=== PATIENT | female | born 1960 | race Caucasian/White ===

== ENCOUNTER 2021-09-19 11:14 | Inpatient (IN) | payer MEDICARE, MEDICAID ==
[~2021-09-19] VITALS: Ht 165.1 cm; Wt 87.5 kg
[2021-09-19] MEDS: ASPIRIN 81MG TABLET PO ONE ×2 (12:00→12:17)
[2021-09-19] MEDS ORDERED: CLONIDINE 0.2MG TABLET PO ONE (12:00)
[2021-09-19] MEDS ORDERED: NITROGLYCERIN 0.4MG TABLET SL SL PRN (12:00)
[2021-09-19 12:11] LABS: BASOPHILS % 0.8 % (0.0-2.0); EOSINOPHILS % 5.1 % (0.0-5.0); HEMATOCRIT. 39.3 % (36.0-48.0); HEMOGLOBIN. 12.5 g/dL (12.0-16.0); LYMPHOCYTES % 11.4 % (20.0-50.0); MEAN CORPUSCULAR HEMOGLOBIN 30.7 pg (28.0-32.0); MEAN CORPUSCULAR VOLUME 96.7 fL (81.0-99.0); MEAN PLATELET VOLUME 8.4 fl (7.4-10.4); MONOCYTES % 5.3 % (2.0-8.0); NEUTROPHILS % 77.4 % (40.0-76.0); PLATELET 194 x1000/uL (130-400); RED BLOOD CELL COUNT 4.07 mill/uL (4.2-5.4); RED CELL DISTRIBUTION WIDTH 16.6 % (11.6-14.6)
[2021-09-19 12:21] LABS: CHLORIDE 108 mEq/L (98-107)
[2021-09-19 12:35] LABS: D-DIMER 1.15 mg/L FEU (<0.50); PARTIAL THROMBOPLASTIN TIME 23.5 sec (23.4-31.0); PROTHROMBIN TIME 10.6 sec (9.6-11.0)
[2021-09-19] MEDS ORDERED: MAGNESIUM/ALUMINUM HYDROXIDE/SIMETHICONE 30ML UDC PO PRN (14:15)
[2021-09-19] MEDS ORDERED: HYDROCODONE/ACETAMINOPHEN 5/325MG TABLET PO PRN (14:15)
[2021-09-19] MEDS ORDERED: DOCUSATE SODIUM 100MG CAPSULE PO PRN (14:15)
[2021-09-19] MEDS: AMLODIPINE 10MG TABLET PO SCH ×2 (14:15→14:36)
[2021-09-19] MEDS ORDERED: ACETAMINOPHEN 325MG TABLET PO PRN (14:15)
[2021-09-19] MEDS ORDERED: GUAIFENESIN 200MG/10ML SUGAR FREE UDC PO PRN (14:15)
[2021-09-19] MEDS ORDERED: ONDANSETRON HCL 4MG/2ML INJ IV PRN (14:15)
[2021-09-19] MEDS ORDERED: DIPHENHYDRAMINE 50MG/ML VIAL IV PRN (14:15)
[2021-09-19] MEDS ORDERED: NALOXONE HCL 0.4MG/ML VIAL IV PRN (14:30)
[2021-09-19 16:38] LABS: HEPATITIS B SURFACE ANTIGEN NEGATIVE
[2021-09-19] MEDS ORDERED: IOHEXOL-350 100 ML BOTTLE ONE (16:48)
[2021-09-19] MEDS: METOPROLOL TARTRATE 25MG TABLET PO SCH (17:12)
[2021-09-19 18:54] VITALS: BP 226/89
[2021-09-19] MEDS ORDERED: FAMO20TA8 PO (19:07)
[2021-09-19] MEDS ORDERED: CARB100C9 PO (19:07)
[2021-09-19] MEDS ORDERED: LINA5TAB PO (19:07)
[2021-09-19] MEDS ORDERED: LEVO100T9 PO (19:07)
[2021-09-19] MEDS ORDERED: CARV25TA47 PO (19:07)
[2021-09-19] MEDS ORDERED: HYDR100T26 PO (19:07)
[2021-09-19] MEDS ORDERED: SPIR25TA6 PO (19:07)
[2021-09-19] MEDS ORDERED: VITA250012 PO (19:07)
[2021-09-19] MEDS ORDERED: CHLO25TA2 PO (19:07)
[2021-09-19] MEDS ORDERED: DEXTROSE 50% WATER 50ML SYRINGE IV PRN (19:15)
[2021-09-19 20:00] VITALS: BP 163/81
[2021-09-19] MEDS: BLOOD SUGAR DIAGNOSTIC STRIP TEST SCH (21:00)
[2021-09-19] MEDS: INSULIN LISPRO 100 UNITS/ML SUBCUT SCH (21:00)
[2021-09-19] MEDS: CLONIDINE 0.1MG TABLET PO PRN (22:22)
[2021-09-20] VITALS (7 sets, daily range): BP systolic 115–185; BP diastolic 50–76
[2021-09-20] MEDS: CLONIDINE 0.1MG TABLET PO PRN ×2 (04:49→21:51)
[2021-09-20 06:01] LABS: CHLORIDE 101 mEq/L (98-107)
[2021-09-20 06:14] LABS: LDL CHOLESTEROL 100 mg/dL (5-100)
[2021-09-20 06:15] LABS: HDL CHOLESTEROL 48 mg/dL (40-59)
[2021-09-20] MEDS: BLOOD SUGAR DIAGNOSTIC STRIP TEST SCH ×4 (06:18→19:43)
[2021-09-20] MEDS: INSULIN LISPRO 100 UNITS/ML SUBCUT SCH ×4 (06:18→21:00)
[2021-09-20 06:23] LABS: BASOPHILS % 0.7 % (0.0-2.0); EOSINOPHILS % 1.4 % (0.0-5.0); HEMATOCRIT. 37.9 % (36.0-48.0); HEMOGLOBIN. 12.2 g/dL (12.0-16.0); LYMPHOCYTES % 18.2 % (20.0-50.0); MEAN CORPUSCULAR HEMOGLOBIN 30.5 pg (28.0-32.0); MEAN CORPUSCULAR VOLUME 94.7 fL (81.0-99.0); MEAN PLATELET VOLUME 8.4 fl (7.4-10.4); MONOCYTES % 7.8 % (2.0-8.0); NEUTROPHILS % 71.9 % (40.0-76.0); PLATELET 185 x1000/uL (130-400); RED CELL DISTRIBUTION WIDTH 16.6 % (11.6-14.6)
[2021-09-20] MEDS: AMLODIPINE 10MG TABLET PO SCH (09:31)
[2021-09-20] MEDS: METOPROLOL TARTRATE 25MG TABLET PO SCH ×2 (09:32→21:51)
[2021-09-20] MEDS: LEVOTHYROXINE SODIUM 100MCG TABLET PO SCH (12:57)
[2021-09-20] MEDS: FAMOTIDINE 20MG TABLET PO SCH (12:57)
[2021-09-20] MEDS: HYDRALAZINE HCL 100MG TABLET PO SCH (17:47)
[2021-09-20] MEDS: CARBAMAZEPINE 100MG TABLET CHEW PO SCH (17:48)
[2021-09-21] VITALS: BP 164/57
[2021-09-21 04:00] VITALS: BP 173/77
[2021-09-21] MEDS: BLOOD SUGAR DIAGNOSTIC STRIP TEST SCH (05:12)
[2021-09-21] MEDS: LEVOTHYROXINE SODIUM 100MCG TABLET PO SCH (05:17)
[2021-09-21] MEDS: INSULIN LISPRO 100 UNITS/ML SUBCUT SCH (05:17)
[2021-09-21 08:00] VITALS: BP 186/82
[2021-09-21] MEDS: HYDRALAZINE HCL 100MG TABLET PO SCH (09:36)
[2021-09-21] MEDS: CARBAMAZEPINE 100MG TABLET CHEW PO SCH (09:36)
[2021-09-21] MEDS: METOPROLOL TARTRATE 25MG TABLET PO SCH (09:36)
[2021-09-21] MEDS: FAMOTIDINE 20MG TABLET PO SCH (09:36)
[2021-09-21] MEDS: AMLODIPINE 10MG TABLET PO SCH (09:37)
[2021-09-21 11:09] VITALS: BP 158/65
== END 2021-09-21 12:46 | disposition home or self-care (01) | DRG 291 ==
LOC: ER 11:14 → 8WST 13:55 → EDBEDREQ 13:58 → EDBEDREQTM 13:58 → ENRESERV 16:42
PROVIDERS: ADMIT Hospitalist; ATTEND Hospitalist
PROC: 5A1D70Z Performance of Urinary Filtration, Intermittent, Less than 6 Hours Per Day (ICD-10-PCS; principal; 2021-09-19)
PROC: 5A1D70Z Performance of Urinary Filtration, Intermittent, Less than 6 Hours Per Day (ICD-10-PCS; 2021-09-21)
DX: I13.2 Hypertensive heart and chronic kidney disease with heart failure and with stage 5 chronic kidney disease, or end stage renal disease (principal); I50.33 Acute on chronic diastolic (congestive) heart failure; N18.6 End stage renal disease; D63.1 Anemia in chronic kidney disease; E03.9 Hypothyroidism, unspecified; E11.22 Type 2 diabetes mellitus with diabetic chronic kidney disease; I16.0 Hypertensive urgency; Z20.822 Contact with and (suspected) exposure to COVID-19; Z99.2 Dependence on renal dialysis; Z88.0 Allergy status to penicillin; Z88.8 Allergy status to other drugs, medicaments and biological substances
CPT/HCPCS: 36415; 71045; 71275; 80048; 80053; 80061; 82962; 83036; 83880; 84443; 84484; 85025; 85379; 86705; 86709; 86803; 87340; 87426; 93005; 93970; 99285; J1815; Q9967